=== PATIENT | female | born 2000 | race Caucasian/White ===

== ENCOUNTER 2021-08-26 12:51 | Emergency (ER) | payer OTHER, SELFPAY ==
[2021-08-26 12:58] VITALS: BP 135/86; PULSE 92; RESP 15; TEMP 37; O2SAT 100; BMI 20.7
--- NOTE | 2021-08-26 13:25 | PC.NURSE ---
Patient had surgery on right foot bunion 1 month prior, pulse palpable, normal strength. Taking aspirin once daily, reports concern for allergy to aspirin, mom has allergy to aspirin. Pt denies history of asthma.
[2021-08-26 13:44] VITALS: PULSE 88; RESP 20; O2SAT 100
--- NOTE | 2021-08-26 14:20 | ED_ITS ---
HPI - General Adult General Chief complaint: Upper Respiratory Symptoms Stated complaint: Allergic Reaction/SOB/Throat Closing Time Seen by Provider: 08/26/21 14:05 Source: patient Mode of arrival: Ambulatory History of Present Illness HPI narrative: Patient is a 20-year-old female. Several weeks ago she underwent a right great toe bunionectomy by Orthopedic surgery. After the surgery she started on a daily aspirin for DVT prophylaxis. This was recommended by her orthopedic provider. She states that over the past several days/weeks she has had intermittent episodes of feel like her throat was closing, shortness of breath. Decreased appetite. No rashes. No vomiting. She does feel like she occasionally wheezes with the last time being in route here to the ER. She reports no other new medications or exposures. She is concerned about allergic reaction to the aspirin. Related Data Home Medications Medication Instructions Recorded Confirmed norethindrone 1 mg-ethinyl 1 tab PO DAILY 03/12/21 05/13/21 estradiol 20 mcg (21)-iron 75 mg (7) tablet (Blisovi Fe 03/25 (28)) Previous Rx's Medication Instructions Recorded trazodone 50 mg tablet 50 mg PO DAILY #30 tabs 05/13/21 methylphenidate HCl 36 mg 36 mg PO DAILY #30 tabs 08/25/21 tablet,extended release 24 hr (Concerta) Allergies Allergy/AdvReac Type Severity Reaction Status Date / Time No Known Drug Allergies Allergy Verified 08/26/21 12:58 Review of Systems Constitutional Constitutional: Reports system reviewed and no additional complaints, except as documented Eyes Eyes: Reports system reviewed and no additional complaints, except as documented ENT Ears, Nose, Mouth, and Throat: Reports system reviewed and no additional comp laints, except as documented and Reports as per HPI Comments: No sinus congestion, occasional cough, Respiratory Respiratory: Reports as per HPI and Reports system reviewed and no additional complaints, except as documented Gastrointestinal Gastrointestinal: Reports as per HPI and Reports system reviewed and no additional complaints, except as documented Integumentary/Breasts Skin/Breast: Reports system reviewed and no additional complaints, except as documented Hematologic/Lymphatic On Anticoagulants: No Allergic/Immunologic Allergic/Immunologic: Reports system reviewed and no additional complaints, except as documented Patient History Medical History ADD (attention deficit disorder) Insomnia Social History Smoking Status: Unknown if ever smoked Smoking Status: Unknown if ever smoked alcohol intake frequency: holidays/special occasions only Substance Use Type: does not use Exam Initial Vital Signs Initial Vital Signs: Vital Signs Temperature 98.6 F 08/26/21 12:58 Pulse Rate 92 H 08/26/21 12:58 Respiratory Rate 15 08/26/21 12:58 Blood Pressure 135/86 08/26/21 12:58 Pulse Oximetry 100 08/26/21 12:58 Oxygen Delivery Method 08/26/21 12:58 Const General: cooperative, comfortable and well developed [facility] Head: normal to inspection, normocephalic and No abrasion Ears: hearing grossly normal bilaterally Face and sinus: normal facial exam Mouth: oral mucosae normal Throat: posterior oropharynx normal Neck Lymphatic: No lymphadenopathy Resp Effort & Inspection: normal respiratory effort Auscultation: clear to auscultation bilaterally and no wheezes Skin General: no rashes or lesions noted Extrem Other: Bandage around great toe. There is no redness outside of this bandage. Course Vital Signs Vital signs: Vital Signs - 8 hr 08/26/21 12:58 08/26/21 13:44 Temperature 98.6 F Pulse Rate 92 H 88 Respiratory Rate 15 20 Blood Pressure 135/86 Pulse Oximetry 100 100 Oxygen Delivery Method Room Air Room Air Medical Decision Making MDM Narrative Medical decision making narrative: Patient's exam today is unremarkable. She is not hypoxic. Not tachypneic. Not tachycardic. Lungs are clear. Low suspicion for pneumonia. I do have a low suspicion that this is an allergic reaction to the aspirin although I informed her that if it is okay with her orthopedic doctor she could stop taking this medication. She is low risk for DVT as she is up moving. She is not walking on her leg but can flex and extend her ankle we discussed how she can do this at home. There is no indication for antibiotics. No indication for radiologic studies. Patient does not having an anaphylactic reaction based on her history and physical exam. She was given return precautions. She expressed understanding and agreement. Discharge Plan Departure Patient Disposition: Home Clinical Impression: Cough, SOB (shortness of breath) Instructions: DI for Shortness of Breath Activity Restrictions/Additional Instructions: Follow all of the postoperative instructions given to you by the orthopedic surgeon. I do recommend that you stop the aspirin. Contact your primary doctor for a follow-up. Return to the emergency department for any new or worsening symptoms. Prescriptions: No Action norethindrone-e.estradiol-iron [Blisovi Fe 03/25 (28)] 1 mg-20 mcg (21)/75 mg (7) tablet 1 tab PO DAILY trazodone 50 mg tablet 50 mg PO DAILY Qty: 30 5RF methylphenidate HCl [Concerta] 36 mg tablet extended release 24hr 36 mg PO DAILY Qty: 30 0RF Referrals: Shimon Sánchez DO [Primary Care Provider] - Visit Report Forms: Patient Portal/API
== END 2021-08-26 14:32 | disposition home or self-care (01) ==
PROVIDERS: Emergency Provider Emergency Medicine; PCP Family Medicine
DX: R05.9 Cough, unspecified (principal); R06.02 Shortness of breath
CPT/HCPCS: 99281

== ENCOUNTER 2023-01-18 17:49 | Emergency (ER) | payer OTHER, SELFPAY ==
[2023-01-18 17:53] VITALS: BP 144/89; PULSE 95; RESP 16; TEMP 36.9; O2SAT 100; BMI 21.7
--- NOTE | 2023-01-18 18:04 | PC.NURSE ---
Pt reports starting ABX po 4-5 days ago while in [place], using topical 14+ days, rash/open area continue to spread. Open area are painful 4-6/10, currently has an area starting near inner corner of right eye, eye lid and eye with burning pain.
[2023-01-18] MEDS: FLUORESCEIN 1 MG STRIP EYE-RIGHT (18:47)
[2023-01-18] MEDS: SODIUM CHLORIDE 0.9% (RT/INH) 3 ML NEB INH (18:48)
--- NOTE | 2023-01-18 19:04 | ED.SKABFB ---
HPI - Skin/Abscess/Foreign Bdy <Oralia Toscano PA-C - Last Filed: 01/18/23 19:20> General Chief complaint: Skin/Abscess/Foreign Body Stated complaint: states MRSA Time Seen by Provider: 01/18/23 18:12 Source: patient Mode of arrival: Ambulatory Limitations: no limitations History of Present Illness HPI narrative: 22-year-old female who presents for evaluation of persistent facial lesions. She reports being in [place] about 2 weeks ago when she experienced a red painful lesion at the end of her nose. It is spread to incite her nostrils, and describes it as burning and painful. She was seen in the [place] clinic and was told she had MRSA on the swab. She was prescribed 5 days of doxycycline which she finished. However the lesions have spread to 1 on her chin and 1 on her cheek, and now she describes radiating burning into the upper sinus and the medial part of her right eyelid. She presented to [facility] where another swab was obtained and she was called and told that she had MRSA again. She was prescribed 5 days of doxycycline because she could not remember the name of the drug that she had taken in [place]. She has taken the new prescription for only a couple of days. She denies fever or chills no nasal drainage no ear pain. She she denies history of cold sores or herpes virus. She says 2 years ago her mother had an MRSA abscess on her face which required I and D plus outpatient IV vancomycin. Related Data Home Medications Medication Instructions Recorded Confirmed trazodone 50 mg tablet 50 mg PO DAILY PRN 11/24/22 01/16/23 etonogestrel 68 mg subdermal subdermal 12/27/22 01/16/23 implant (Nexplanon) Previous Rx's Medication Instructions Recorded albuterol sulfate 90 mcg/actuation 2 puff inhalation Q6H PRN 09/16/21 aerosol inhaler (ProAir HFA) shortness of breath or wheezing #6.7 grams methylphenidate HCl 36 mg 36 mg PO DAILY #30 tabs 09/16/21 tablet,extended release 24 hr (Concerta) doxycycline hyclate 100 mg capsule 100 mg PO BID staph infection 10 01/16/23 days #20 caps cephalexin 500 mg capsule 500 mg PO QID #28 caps 01/18/23 Allergies Allergy/AdvReac Type Severity Reaction Status Date / Time aspirin AdvReac Severe Swelling Verified 01/16/23 12:02 of Lip/Tongue/Throat Review of Systems <Oralia Toscano PA-C - Last Filed: 01/18/23 19:20> Review of Systems Narrative: 12 point review of systems is negative except for those stated above. Patient History <Oralia Toscano PA-C - Last Filed: 01/18/23 19:20> Medical History Contraception management Wheezing Persistent dry cough Insomnia ADD (attention deficit disorder) Social History Smoking Status: Never smoker Smoking Status: Never smoker alcohol intake frequency: holidays/special occasions only Substance Use Type: does not use Exam <Oralia Toscano PA-C - Last Filed: 01/18/23 19:20> Narrative Exam Narrative: SKIN: Crusted dark red lesion at the tip of the nose with extension into bilateral nares superficially. One 2 mm red crusted lesion in the midline of the chin, and a very similar-appearing lesion on the left cheek just lateral to her mouth. EYES: Sclera clear bilaterally, PERRL, very mild erythema to the medial upper eyelid with no swelling. Fluorescein exam under black light negative for foreign body or dendrites. Lungs: Clear to auscultation bilaterally Heart: Regular rate and rhythm no murmur. Initial Vital Signs Initial Vital Signs: Vital Signs Temperature 98.4 F 01/18/23 17:53 Pulse Rate 95 H 01/18/23 17:53 Respiratory Rate 16 01/18/23 17:53 Blood Pressure 144/89 H 01/18/23 17:53 Pulse Oximetry 100 01/18/23 17:53 Oxygen Delivery Method Room Air 01/18/23 17:53 <Neyda Albarado DO - Last Filed: 01/19/23 02:44> Initial Vital Signs Initial Vital Signs: Vital Signs Temperature 98.4 F 01/18/23 17:53 Pulse Rate 95 H 01/18/23 17:53 Respiratory Rate 16 01/18/23 17:53 Blood Pressure 144/89 H 01/18/23 17:53 Pulse Oximetry 100 01/18/23 17:53 Oxygen Delivery Method Room Air 01/18/23 17:53 Course <Oralia Toscano PA-C - Last Filed: 01/18/23 19:20> Orders Ordered: ED Orders 01/18/23 18:15 HSV 1/2 DNA PCR SWAB or BLOOD Stat Discontinued Medications Fluorescein Sodium (Fluorescein 1 Mg Strip) 1 mg EYE-RIGHT NOW ONE Stop: 01/18/23 18:35 Last Admin: 01/18/23 18:47 Dose: 1 mg Documented By: KERRIE Proparacaine HCl (Proparacaine 0.5% Ophth Corin) 1 drops EYE-RIGHT NOW ONE Stop: 01/18/23 18:42 Last Admin: 01/18/23 18:55 Dose: Not Given Documented By: KERRIE Sodium Chloride (Sodium Chloride 0.9% (Rt/Inh) 3 Ml Neb) 3 ml INH NOW ONE Stop: 01/18/23 18:39 Last Admin: 01/18/23 18:48 Dose: 3 ml Documented By: KERRIE Vital Signs Vital signs: Vital Signs - 8 hr 01/18/23 17:53 Temperature 98.4 F Pulse Rate 95 H Respiratory Rate 16 Blood Pressure 144/89 H Pulse Oximetry 100 Oxygen Delivery Method Room Air <Neyda Albarado, - Last Filed: 01/19/23 02:44> Orders Ordered: ED Orders 01/18/23 18:15 HSV 1/2 DNA PCR SWAB or BLOOD Stat Discontinued Medications Fluorescein Sodium (Fluorescein 1 Mg Strip) 1 mg EYE-RIGHT NOW ONE Stop: 01/18/23 18:35 Last Admin: 01/18/23 18:47 Dose: 1 mg Documented By: KERRIE Proparacaine HCl (Proparacaine 0.5% Ophth Corin) 1 drops EYE-RIGHT NOW ONE Stop: 01/18/23 18:42 Last Admin: 01/18/23 18:55 Dose: Not Given Documented By: KERRIE Sodium Chloride (Sodium Chloride 0.9% (Rt/Inh) 3 Ml Neb) 3 ml INH NOW ONE Stop: 01/18/23 18:39 Last Admin: 01/18/23 18:48 Dose: 3 ml Documented By: KERRIE Vital Signs Vital signs: Vital Signs - 8 hr 01/18/23 17:53 Temperature 98.4 F Pulse Rate 95 H Respiratory Rate 16 Blood Pressure 144/89 H Pulse Oximetry 100 Oxygen Delivery Method Room Air MDM - Skin/Abscess/Foreign Bdy <Oralia Toscano PA-C - Last Filed: 01/18/23 19:20> MDM Narrative Medical decision making narrative: Issues to consider: Family history and possible chronic colonization of MRSA, HSV for which I got a swab. Infection not responding to doxycycline. Patient also was seen by Dr. Albarado and plan is to switch her antibiotic to Keflex 500 mg 4 times a day for 7 days. And patient agrees with this plan Discharge Plan Departure Patient Disposition: Home Clinical Impression: Facial rash Instructions: DI for Methicillin-Resistant Staph Infection (MRSA) Activity Restrictions/Additional Instructions: It appears that doxycycline was not effective for your confirmed MRSA infection. We are going to switch to antibiotic called Keflex which he will need to take 4 times a day for 7 days. please complete this course since this infection seems a bit stubborn. Take ibuprofen or Tylenol for any pain or discomfort. Your eye exam appears normal today. Follow up with her primary care provider in 5-7 days if the lesions have not cleared. However if it gets worse be seen earlier or come to the ER for significant increase in the rash, the pain, or any visual changes. It was a pleasure to take care of you today. Prescriptions: New cephalexin 500 mg capsule 500 mg PO QID Qty: 28 0RF No Action doxycycline hyclate 100 mg capsule 100 mg PO BID 10 Days Qty: 20 0RF albuterol sulfate [ProAir HFA] 90 mcg/actuation HFA aerosol inhaler 2 puff inhalation Q6H PRN (Reason: shortness of breath or wheezing) Qty: 6.7 1RF methylphenidate HCl [Concerta] 36 mg tablet extended release 24hr 36 mg PO DAILY Qty: 30 0RF Nexplanon 68 mg implant subdermal Patient Comments: Lot # [id number] trazodone 50 mg tablet 50 mg PO DAILY PRN Referrals: Angel Sánchez DO [Primary Care Provider] - Stand Alone Forms: Patient Portal/API ED Sign-out <Neyda Albarado DO - Last Filed: 01/19/23 02:44> Cosign ED Attending Cosignature Attestation: I was immediately available in the department for consultation. Patient was also seen and evaluated by myself had MRSA swab at some point told she had MRSA her mom did have an MRSA infection in the past. She is been on 2 rounds of doxycycline as well as topical mupirocin without any improvement her exam findings are very consistent with an impetigo around the edge of her nose with honey crusting in several small dot lesions extending outwards. She does not appear to have any eye involvement, there is no overlying cellulitis discussed will change her antibiotic for different coverage to see if this has a better improvement. Cultures are not available in our EMR system. Discussed with patient she should start to have improvement at the 24-48 hours continued to have improvement of antibiotics being effective if they are not or she is having rapidly worsening symptoms she is to return.
[2023-01-21 21:38] LABS: HSV 1 DNA Positive (Negative); HSV 2 DNA Negative (Negative)
== END 2023-01-18 19:11 | disposition home or self-care (01) ==
PROVIDERS: Emergency Provider Physician Assistant; PCP Family Medicine
DX: B00.89 Other herpesviral infection (principal)
CPT/HCPCS: 87529; 99282

== ENCOUNTER → 2023-04-25 15:29 | Outpatient (CLI) | payer OTHER, SELFPAY ==
--- NOTE | 2023-04-25 | DI.MRI.S_ITS ---
PROCEDURE: MR FOOT RT WO CON INDICATIONS: STRESS REACTION OF BONE TECHNIQUE: Multiphasic, multisequence MRI of the forefoot was performed, without intravenous contrast administration. COMPARISON: [facility], CR, XR FOOT 3 VIEWS WEIGHT BEARING RIGHT, 04/07/2023, 15:08. FINDINGS: Image quality: Excellent. Bones and joints: Postsurgical changes are seen at the 1st metatarsal from prior bunionectomy and realignment with 2 metal screws. There is mild associated metal artifact that partially obscures adjacent structures. Mild edema is seen in the proximal 1st metatarsal with a thin linear [id number] signal abnormality that could represent an incomplete fracture line. Areas of mild osseous edema are seen in the medial cuneiform, the navicular, the talar head and neck, and the anterior calcaneus. Soft tissues: The visualized plantar foot muscles demonstrate normal signal and bulk. Visualized flexor and extensor tendons appear intact, without tenosynovitis. The distal insertions of the peroneus brevis and longus tendons appear intact. The principal Lisfranc ligament appears intact. No soft tissue ganglion cysts or bursal fluid collections. Sagittal images demonstrate no evidence for plantar plate tears. IMPRESSION: 1. Postsurgical changes at the distal 1st metatarsal from prior bunionectomy and realignment osteotomy. 2. Multifocal osseous edema throughout the midfoot and hindfoot is suspicious for acute stress reaction, possibly related to altered biomechanics. An incomplete linear [id number] at the 1st metatarsal base is suspicious for a nondisplaced stress fracture. 3. No significant ligament or tendon injury is seen. Approved by: Jay Parisi M.D. on 04/26/2023 at 13:22
== END ==
LOC: MRI 15:31
PROVIDERS: PCP Family Medicine; Referring Provider Orthopaedic Surgery Foot and Ankle Surgery; Visit Provider Orthopaedic Surgery Foot and Ankle Surgery
DX: M84.30XA Stress fracture, unspecified site, initial encounter for fracture (principal)
CPT/HCPCS: 73718

== ENCOUNTER → 2024-03-29 15:26 | Outpatient (CLI) | payer OTHER, SELFPAY ==
[2024-03-29 16:41] LABS: Add Manual Diff / Slide Review NO; Basophils Absolute Auto 0 /uL (0-100); Basophils Percent Auto 0.5 % (0-2); Eosinophils Absolute Auto 100 /uL (0-450); Eosinophils Percent Auto 1.2 % (2-4); Hematocrit 41.1 % (36-46); Hemoglobin 13.9 g/dL (12.0-16.0); Lymphocytes Absolute Auto 2500 /uL (1100-4500); Lymphocytes Percent Auto 34.3 % (25-40); Mean Corpuscular HGB Conc 33.9 % (30-36); Mean Corpuscular Hemoglobin 29.5 PG (26-34); Mean Corpuscular Volume 87.1 fL (80-100); Monocytes Absolute Auto 600 /uL (0-900); Monocytes Percent Auto 7.8 % (3-14); Neutrophils Absolute Auto 4000 /uL (1500-7000); Neutrophils Percent Auto 56.2 % (50-75); Platelet Count 194 X10^3/uL (150-400); Red Blood Cell Count 4.71 X10^6/uL (4.0-5.2); Red Cell Distribution Width 12.7 % (11.6-14.8); White Blood Cell Count 7.2 X10^3/uL (4.5-11.0)
[2024-03-29 17:36] LABS: Free T4, Direct Thyroxine 0.94 ng/dL (0.78-2.19)
[2024-03-29 17:50] LABS: Thyroid Stimulating Hormone 0.503 uIU/mL (0.47-4.68)
== END ==
PROVIDERS: PCP Family Medicine; Referring Provider Obstetrics & Gynecology; Visit Provider Obstetrics & Gynecology
DX: N93.9 Abnormal uterine and vaginal bleeding, unspecified (principal)
CPT/HCPCS: 36415; 84439; 84443; 85025